=== PATIENT | female | born 1985 | race Two or more races ===

== ENCOUNTER 2024-07-09 18:53 | Emergency (ER) | payer MEDICAID, SELFPAY ==
[2024-07-09] VITALS (7 sets, daily range): BP systolic 134–150; BP diastolic 102–108; PULSE 86–102; RESP 20–24; TEMP 37–37.7; O2SAT 96–100; BMI 35.5
--- NOTE | 2024-07-09 20:19 | EDNOTE_ITS ---
Upper Respiratory Inf. RME/HPI General Chief Complaint: Shortness of Breath/Dyspnea Stated Complaint: SOB Arrival date/time: 07/09/24 18:53 RME / HPI RME / HPI Narrative: DR. CHAVEZ MAIN ED EVALUATION: 38 year old female presents to the Emergency Department [facility] with complaints of a cough and a sore throat onset 4 days ago. EMS states patient had a cough for 2 days had coughing spasms. Patient also has a mild headache today. Symptoms are moderate. PMHx: Denies any PMHx, surgeries, daily medications, or known allergies. Social Hx: Methamphetamine and marijuana use. Related Data Previous Rx's ?Medication ?Instructions ?Recorded albuterol sulfate 90 mcg/actuation 1 inh inhalation QID PRN shortness 07/09/24 aerosol inhaler of breath or wheezing #8.5 grams Allergies Allergy/AdvReac Type Severity Reaction Status Date / Time No Known Allergies Allergy Verified 07/07/22 07:36 Review of Systems Review of Systems Systems Reviewed: All systems reviewed, normal except as documented Narrative Review of Systems: GEN: No fever, no chills, no weight loss EYES: No discharge, no visual changes, no pain HEENT: No ear pain, no congestion, + sore throat PULM: No shortness of breath, + cough CV: No chest pain, no dyspnea on exertion, no palpitations GI: No nausea, no vomiting, no diarrhea, no pain, no constipation : No frequency, no urgency and no dysuria MUSC/SKEL: No joint pain, no back pain SKIN: No rash PSYCH: No hallucinations, no depression HEME/LYMPH: No easy bleeding or bruising tendencies NEURO: No weakness, + mild headache Past Medical History Past Medical History GASTROINTESTINAL: Positive Gall Bladder Disease Surgical History SURGICAL: Positive Tubal Ligation Social History SMOKING STATUS: Never smoker SUBSTANCE USE: marijuana and methamphetamine ALCOHOL: Never ED Exam Narrative Physical exam: GENERAL APPEARANCE: alert and oriented x 4, well-developed, well-nourished, no acute distress VITALS: All vitals were reviewed and the pulse ox is 98% on room air, which is normal according to my interpretation. HEENT: Normocephalic, atraumatic; pupils equal, round, reactive to light; EOMI; mucous membranes pink, moist; oropharynx clear NECK: Supple LUNGS: CTABL; no wheezes, no rales, no rhonchi HEART: Regular rate, regular rhythm; normal S1, S2; no murmurs ABDOMEN: non distended; normal BS; soft, no tenderness, no guarding, no rebound; no masses, no organomegaly, no hernia BACK: no CVA tenderness EXTREMITIES: atraumatic; no edema NEUROLOGIC: awake; alert and oriented x4; cranial nerves II-XII grossly intact; no focal sensory or motor deficits PSYCHIATRIC: appropriate mood and affect SKIN: warm, dry, normal color; no rashes Course Quality Measures none Orders Category Date Time Status Bedside COVID-19 Antigen Test NOW Care 07/09/24 20:22 Active Bedside Influenza A&B Antigen Test NOW Care 07/09/24 20:22 Completed Non Destructive Evaluation Technician NOW Care 07/09/24 20:22 Active EKG (ED ONLY) *Do not use* NOW Care 07/09/24 20:22 Completed EKG (ED Only) Stat Exams 07/09/24 20:22 Draft XR chest 1V portable Stat Exams 07/09/24 20:22 Completed B-Type Natriuretic Peptide Stat Lab 07/09/24 20:38 Completed CBC Stat Lab 07/09/24 20:38 Completed Comprehensive Metabolic Panel Stat Lab 07/09/24 20:38 Completed Lipase Stat Lab 07/09/24 20:38 Completed Magnesium Stat Lab 07/09/24 20:38 Completed Troponin I Stat Lab 07/09/24 20:38 Completed Albuterol/Ipratr Rt Ela [Duoneb Rt Ela] Med 07/09/24 20:38 Discontinued 3 ml INH X1 ONE Albuterol/Ipratr Rt Ela [Duoneb Rt Ela] Med 07/09/24 22:19 Discontinued 3 ml INH X1 ONE Dexamethasone Inj [Decadron Inj] Med 07/09/24 20:38 Discontinued 6 mg IV X1 ONE KCL 10% Liq UDC 15 ML Med 07/09/24 22:17 Discontinued 40 meq PO X1 ONE Vital Signs Vital signs: Vital Signs Temperature 98.6 F 07/09/24 19:11 Pulse Rate 98 07/09/24 19:11 Respiratory Rate 20 07/09/24 19:11 Blood Pressure 149/102 H 07/09/24 19:11 Pulse Oximetry (%) 100 07/09/24 19:11 Oxygen Delivery Method Nasal Cannula 07/09/24 19:11 Oxygen Flow Rate 3 07/09/24 19:11 Upper Respiratory Infection MDM Narrative MDM Narrative:: Daria Kenney am scribing for and in the presence of Dr. Chavez. Patient data External records reviewed:: [facility] previous records (Reviewed last ED visit dated 04/19/23, discharged with the following: Chest wall contusion.) and EMS form Clinical information provided by:: patient and EMS Social determinants that could affect healthcare access:: substance use (Methamphetamine and marijuana use. ) Patient has the following chronic illnesses:: Denies any PMHx, surgeries, daily medications, or known allergies. How is presenting disease/condition affected by chronic disease/condition?: no chronic disease Evaluation data The following diagnostics were reviewed and interpreted by me:: lab results, radiology exam(s) and EKG tracing(s) (sinus rhythm, rate 80, no STEMI) Lab and/or radiology exams considered but not ordered:: none Interpretation Summary: Procedure(s): XR chest 1V portable Accession Number(s): [id number] cc: Tanner Hickman MD; Reginald Stevenson MD; Shonda Chavez MD~ Examination: AP chest single view Technique: AP portable upright chest single view Exam date and time: July 09, [id number] hrs. Comparison 04/19/2023 Indications: Onset chest pain today. Findings: Normal heart size No lobar pneumonia or pulmonary edema Intact osseous structures Impression: No pneumonia or pulmonary edema Dictated By: Reginald Stevenson MD Medications / Prescriptions Medications or Prescriptions considered but not ordered:: none Medication administrations:: Medication Administration History Discontinued Medications Albuterol/Ipratropium (Albuterol/Ipratropium (Duoneb) Rt Ela 3 Ml Nebu) 3 ml INH X1 ONE Stop: 07/09/24 20:39 Last Admin: 07/09/24 21:24 Dose: 3 ml Documented By: LOU Albuterol/Ipratropium (Albuterol/Ipratropium (Duoneb) Rt Ela 3 Ml Nebu) 3 ml INH X1 ONE Stop: 07/09/24 22:20 Last Admin: 07/09/24 22:52 Dose: 3 ml Documented By: LOU Dexamethasone Sodium Phosphate (Dexamethasone Sod Phos Inj 10 Mg/Ml Vial) 6 mg IV X1 ONE Stop: 07/09/24 20:39 Last Admin: 07/09/24 21:16 Dose: 6 mg Documented By: GRACIA Potassium Chloride (Potassium Chloride 10% 20 Meq/15 Ml Udc) 40 meq PO X1 ONE Stop: 07/09/24 22:18 Last Admin: 07/09/24 23:10 Dose: 40 meq Documented By: GRACIA see above Consultations Consultation(s) initiated? (list below): No Diagnosis Upper Respiratory Differential Diagnosis: upper respiratory infection, viral infection, bronchitis, influenza and pharyngitis Most likely diagnosis given after review of the tests above:: Cough Wheezes Admission Indicated Admission indicated?: not indicated Admission Request Was there a request for admission?: No Disposition Plan Disposition Plan: Discharge Discharge Attestation Discharge Attestation: The patient and all family members were given an opportunity to ask questions and understood the discharge instructions. Discharge instructions specifically effects, indications for sooner follow up or return to the emergency department, and the expected course of current diagnosis. Patient condition: Stable Discharge Plan Plan Patient Disposition: HOME (Self Care) Prescriptions/Referrals Prescriptions/Med Rec: New albuterol sulfate 90 mcg/actuation HFA aerosol inhaler 1 inh inhalation QID PRN (Reason: shortness of breath or wheezing) Qty: 8.5 0RF Referrals: Tanner Hickman MD [Primary Care Provider] - In 1 week Problem List Clinical Impression: Cough, Wheezes Patient/Caregiver Discharge Instructions Education Materials: ED Bronchitis with Wheezing (Adult) Print Language: [place] Islander Stand Alone Forms: Robyn Award Info., Patient Portal Info Letter
--- NOTE | 2024-07-09 20:22 | XR_ITS ---
Examination: AP chest single view Technique: AP portable upright chest single view Exam date and time: July 09, [id number] hrs. Comparison 04/19/2023 Indications: Onset chest pain today. Findings: Normal heart size No lobar pneumonia or pulmonary edema Intact osseous structures Impression: No pneumonia or pulmonary edema
--- NOTE | 2024-07-09 20:22 | EKG_ITS ---
[facility] Test Date: 2024-07-09 Pat Name: BISI LOUIS Department: Room: - Gender: Female [employer] Super[employer]: : 1985 Requested By: Shonda Hackett Order Number: [id number] Reading MD: Shonda Hackett Measurements Intervals [place] Rate: 80 P: 36 MN: 163 QRS: 11 QRSD: 102 T: 43 QT: 387 QTc: 448 Interpretive Statements SINUS RHYTHM Compared to ECG 07/07/2022 07:47:00 Incomplete right bundle-branch block no longer present /store/S0/[id number]/ecg/[id number].pdf
[2024-07-09 20:59] LABS: Basophils % (Auto) 0 % (0-2.5); Eosinophils % (Auto) 1 % (0-10); Immature Granulocytes % (Auto) 0 % (0-0); Immature Granulocytes Auto 0.03 Thou/mm3 (0.00-0.00); Lymphocytes # (Auto) 2.5 Thou/mm3 (1.0-4.8); Lymphocytes % (Auto) 31 % (10-50); Mean Corpuscular HGB Conc 30.4 g/dl (31.0-37.0); Mean Corpuscular Hemoglobin 24.7 pg (25.0-35.0); Mean Corpuscular Volume 81 fL (80-100); Monocytes # (Auto) 0.9 Thou/mm3 (0.0-0.8); Monocytes % (Auto) 11 % (0-12); Neutrophils # (Auto) 4.6 Thou/mm3 (1.8-7.7); Neutrophils % (Auto) 58 % (37-80); Nucleated Red Blood Cell # 0.02 Thou/mm3 (0.00-0.00); Nucleated Red Blood Cell % 0 /100 WBC (0); Platelet Count 323 Thou/mm3 (140-440); RDW Standard Deviation 48.7 fL (36.4-46.3); Red Blood Count 3.32 Miln/mm3 (4.00-5.20)
[2024-07-09 21:13] LABS: B-Type Natriuretic Peptide 74 pg/mL (0-100)
[2024-07-09 21:14] LABS: Alanine Aminotransferase 37 U/L (10-49); Albumin, Serum 4.1 gm/dL (3.5-5.0); Albumin/Globulin Ratio 1.3 (1.2-2.2); Alkaline Phosphatase 92 U/L (46-116); Anion Gap 7 (7-16); Aspartate Amino Transferase 13 U/L (0-34); BUN/Creatinine Ratio 11 Ratio (12-20); Bilirubin,Total 0.3 mg/dL (0.3-1.2); Blood Urea Nitrogen 9 mg/dL (9-23); Calcium 8.5 mg/dL (8.3-10.6); Calcium (Corrected) 8.5 mg/dL (8.5-10.1); Chloride 104 mMol/L (98-107); Creatinine (Component) 0.8 mg/dL (0.6-1.3); Estimated Creatinine Clearance 111.4 mL/min (>60); Globulin 3.2 gm/dL (2.3-3.5); Glucose 113 mg/dL (74-106); Lipase 38 U/L (12-53); Magnesium 1.7 mg/dL (1.6-2.6); Osmolality,Calculated 275 (275-295); Potassium 3.3 mMol/L (3.4-5.1); Sodium 138 mMol/L (136-145); Total Protein 7.3 gm/dL (5.7-8.2); Troponin I < 0.002 ng/mL (0.0-0.045); eGFR > 60 See Note
[2024-07-09] MEDS: DEXAMETHASONE SOD PHOS INJ 10 MG/ML VIAL 6 MG IV (21:16)
[2024-07-09 21:24] LABS: Hemoglobin 8.2 g/dL (12.0-16.0)
[2024-07-09] MEDS: ALBUTEROL/IPRATROPIUM (Duoneb) RT SOL 3 ML NEBU INH ×2 (21:24→22:52)
[2024-07-09] MEDS: POTASSIUM CHLORIDE 10% 20 MEQ/15 ML UDC 40 MEQ PO (23:10)
--- NOTE | 2024-07-09 23:15 | PC.NURSE ---
Pt resting quietly, family at bedside. Cogh has seemed to deminished.
[2024-07-10 00:23] VITALS: RESP 18; O2SAT 95
== END 2024-07-10 00:23 | disposition home or self-care (01) ==
PROVIDERS: Emergency Provider Emergency Medicine; PCP Family Medicine
DX: R05.9 Cough, unspecified (principal); R07.9 Chest pain, unspecified; R06.2 Wheezing
CPT/HCPCS: 36415; 71045; 80053; 83690; 83735; 83880; 84484; 85025; 87400; 87811; 93005; 94640; 96374; 99284; A9270; J1100

== ENCOUNTER 2024-11-22 10:48 | Emergency (ER) | payer MEDICAID, SELFPAY ==
[2024-11-22 10:49] VITALS: BMI 32.1
[2024-11-22 11:09] VITALS: BP 124/81; PULSE 107; RESP 17; TEMP 36.9; O2SAT 100
--- NOTE | 2024-11-22 12:33 | EDNOTE_ITS ---
<Statement entered by Shonda Chavez MD - 11/22/24 14:46> As co-signing physician, I was present and available for consult prn. I concur with the plan and care as documented by the midlevel provider. ED Skin Abcess FB-RME/HPI General Chief complaint: Skin/Abscess/Foreign Body Stated complaint: BUMP TO L MID BACK X2 WEEKS Time Seen by Provider: 11/22/24 10:55 Arrival date/time: 11/22/24 10:48 39-year-old female presents emergency department today complaints of bump to the back patient reports symptoms ongoing for last couple of weeks patient reports that this has been there in the past and she has had to have it drained. Patient reports no significant medical problems no chance of Limitations: no limitations Related Data Previous Rx's ?Medication ?Instructions ?Recorded albuterol sulfate 90 mcg/actuation 1 inh inhalation QI D PRN shortness 07/09/24 aerosol inhaler of breath or wheezing #8.5 g brian clindamycin HCl 150 mg capsule 450 mg (3 x 150 mg) PO TID 7 days 11/22/24 #63 caps ibuprofen 600 mg tablet 600 mg PO Q6H #30 tabs 11/22 Allergies Allergy/AdvReac Type Severity Reaction Status Date / Time No Known Allergies Allergy Verified 07/07/22 07:36 Review of Systems Review of Systems Systems Reviewed: All systems reviewed, normal except as documented Constitutional Constitutional: Reports system reviewed and no additional complaints, except as documented, Denies fatigue, Denies fever(s) and Denies headache(s) Eyes Eyes: Reports system reviewed and no additional complaints, except as documented ENT Ears, Nose, Mouth, and Throat: Reports system reviewed and no additional complaints, except as documented, Denies dizziness and Denies headache(s) Cardiovascular Cardiovascular: Reports system reviewed and no additional complaints, except as documented, Denies chest pain, Denies dyspnea and Denies dyspnea on exertion Respiratory Respiratory: Reports system reviewed and no additional complaints, except as documented, Denies chest congestion, Denies cough, Denies dyspnea and Denies dyspnea on exertion Gastrointestinal Gastrointestinal: Reports system reviewed and no additional complaints, except as documented, Denies abdominal pain, Denies nausea and Denies vomiting Genitourinary Genitourinary: Reports system reviewed and no additional complaints, except as documented, Denies flank pain, Denies hematuria and Denies pelvic pain Musculoskeletal Musculoskeletal: Reports system reviewed and no additional complaints, except as documented, Denies abnormal gait, Denies numbness, Denies stiffness and Denies tingling Integumentary/Breasts Skin/Breast: Reports system reviewed and no additional complaints, except as documented, Denies rash, Denies wounds and Reports other (Infected sebaceous cyst) Neurologic Neurologic: Reports system reviewed and no additional complaints, except as documented, Denies abnormal gait, Denies dizziness, Denies headache(s), Denies numbness and Denies tingling Psychiatric Psychiatric: Reports system reviewed and no additional complaints, except as documented and Denies anxiety Endocrine Endocrine: Denies fatigue Past Medical History Past Medical History CARDIAC: Negative Cardiac Disorders or Congestive Heart Failure RESPIRATORY: Negative Chronic Obstructive Pulmonary Disease (COPD) or Asthma GASTROINTESTINAL: Positive Gall Bladder Disease GENITOURINARY: Negative Renal Disease ENDOCRINE: Negative Diabetes Mellitus Type 1 or Diabetes Mellitus Type 2 HEMATOLOGIC: Negative Sickle Cell Disease Surgical History SURGICAL: Positive Tubal Ligation Social History SMOKING STATUS: Never smoker SUBSTANCE USE: marijuana and methamphetamine ED Exam General Limitations: Present no limitations General appearance: Present alert and in no apparent distress Head Head exam: Present atraumatic Eye Eye exam: Present normal appearance, PERRL and EOMI ENT ENT exam: Present normal exam, normal oropharynx and mucous membranes moist Neck Neck exam: Present normal inspection, full ROM and trachea midline Chest Chest inspection: Present normal inspection and symmetric chest wall rise Respiratory Respiratory exam: Present normal lung sounds bilaterally Cardiovascular Cardiovascular exam: Present regular rate, normal rhythm and normal heart sounds Abdominal Exam Abdominal exam: Present soft and normal bowel sounds Extremities Exam Extremities exam: Present normal inspection and full ROM Back Exam Back exam: Present normal inspection and full ROM Neurological Exam Neurological exam: Present alert, oriented X3 and CN II-XII intact Psychiatric Psychiatric exam: Present normal affect and normal mood Skin Skin exam: Present warm, dry and other (Infected sebaceous cyst) Course Quality Measures none Orders Category Date Time Status Consult to General Surgery Stat Cons 11/22/24 11:28 Ordered Lidocaine 1% 20 ml [Xylocaine 1% 20 ML] Med 11/22/24 12:34 Discontinued 2.1 ml INFL X1 ONE cefTRIAXone [Rocephin] Med 11/22/24 12:34 Discontinued 1,000 mg IM X1 ONE Vital Signs Vital signs: Vital Signs Temperature 98.4 F 11/22/24 11:09 Pulse Rate 107 H 11/22/24 11:09 Respiratory Rate 17 11/22/24 11:09 Blood Pressure 124/81 11/22/24 11:09 Pulse Oximetry (%) 100 11/22/24 11:09 Oxygen Delivery Method Room Air 11/22/24 11:09 O2 saturation 100% on room air within the limits Procedures -ED Abscess I/D Site: back Side (if applicable): left Local Anesthetic: lidocaine 1% Amount of anesthesia used (mL): 10 Technique: incised with #11 blade Amount of fluid expressed (mL): 20 Irrigation: Yes Packing used?: none Complications: pain Skin / Abscess / Foreign Body MDM Narrative MDM Narrative:: 39-year-old female presents emergency department today complaints of bump to the back patient reports symptoms ongoing for last couple of weeks patient reports that this has been there in the past and she has had to have it drained. Patient reports no significant medical problems no chance of On exam patient has what appears to be infectious cyst Consultation: I spoke with Dr. Clark who evaluated patient felt the patient should have drainage here and she will follow-up in the office I&D performed patient Toller procedure well copious amounts of discharge removed Patient data External records reviewed:: [facility] [place] previous records Clinical information provided by:: patient Social determinants that could affect healthcare access:: none Patient has the following chronic illnesses:: none How is presenting disease/condition affected by chronic disease/condition?: no chronic disease Evaluation data The following diagnostics were reviewed and interpreted by me:: other (specify) (na ) Lab and/or radiology exams considered but not ordered:: na Interpretation Summary: na Medications / Prescriptions Medications or Prescriptions considered but not ordered:: given Medication administrations:: Medication Administration History Discontinued Medications Ceftriaxone Sodium (Ceftriaxone Sod Inj 1,000 Mg Vial) 1,000 mg IM X1 ONE Stop: 11/22/24 12:35 Last Admin: 11/22/24 12:49 Dose: 1,000 mg Documented By: OA Lidocaine HCl (Lidocaine Hcl 1% 20 Ml Vial) 2.1 ml INFL X1 ONE Stop: 11/22/24 12:35 Last Admin: 11/22/24 12:49 Dose: 2.1 ml Documented By: OA given Consultations Consultation(s) initiated? (list below): No Diagnosis Skin/Abscess Differential Diagnosis: abscess of skin or subcutaneous tissue and cellulitis Most likely diagnosis given after review of the tests above:: infected sebaceous cyst Admission Indicated Admission indicated?: not indicated Admission Request Was there a request for admission?: No Disposition Plan Disposition Plan: Discharge Discharge Attestation Discharge Attestation: The patient and all family members were given an opportunity to ask questions and understood the discharge instructions. Discharge instructions specifically effects, indications for sooner follow up or return to the emergency department, and the expected course of current diagnosis. Patient condition: Stable Discharge Plan Plan Patient Disposition: HOME (Self Care) Disposition Comment: Stable Prescriptions/Referrals Prescriptions/Med Rec: New clindamycin HCl 150 mg capsule 450 mg PO TID 7 Days Qty: 63 0RF ibuprofen 600 mg tablet 600 mg PO Q6H Qty: 30 0RF No Action albuterol sulfate 90 mcg/actuation HFA aerosol inhaler 1 inh inhalation QID PRN (Reason: shortness of breath or wheezing) Qty: 8.5 0RF Referrals: Tanner Hickman MD [Primary Care Provider] - In 1 week Problem List Clinical Impression: Infected sebaceous cyst of skin Patient/Caregiver Discharge Instructions Education Materials: ED Wound Check (Infection) Additional Instructions: Please follow-up with the surgeon as discussed for worsening symptoms return immediately Print Language: Irish Stand Alone Forms: Robyn Award Info., Patient Portal Info Letter IDA/LALITA Supervising Physician IDA/LALITA Supervising Physician: Dr CHAVEZ
[2024-11-22] MEDS: cefTRIAXone SOD INJ 1,000 MG VIAL 1000 MG IM (12:49)
[2024-11-22] MEDS: LIDOCAINE HCL 1% 20 ML VIAL 2.1 ML INFL (12:49)
== END 2024-11-22 14:28 | disposition home or self-care (01) ==
PROVIDERS: Emergency Provider Emergency Medicine; PCP Family Medicine
DX: L72.3 Sebaceous cyst (principal)
CPT/HCPCS: 10060; 96372; 99283; J0696; J3490

== ENCOUNTER 2025-02-19 18:56 | Emergency (ER) | payer MEDICAID, SELFPAY ==
[2025-02-19 18:58] VITALS: BMI 32.3
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
[2025-02-19 19:35] VITALS: BP 137/81; PULSE 86; RESP 16; TEMP 36.6; O2SAT 100
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
[2025-02-19] MEDS: DIPHTH,PERTUSS(ACELL),TET VAC 0.5 ML SYR- ADULT IMi (19:47)
== END 2025-02-19 22:10 | disposition home or self-care (01) ==
PROVIDERS: Emergency Provider Emergency Medicine; PCP Family Medicine
DX: S02.2XXA Fracture of nasal bones, initial encounter for closed fracture (principal); S70.311A Abrasion, right thigh, initial encounter; S30.0XXA Contusion of lower back and pelvis, initial encounter; S00.83XA Contusion of other part of head, initial encounter; S70.12XA Contusion of left thigh, initial encounter; S70.11XA Contusion of right thigh, initial encounter; M53.3 Sacrococcygeal disorders, not elsewhere classified; M54.2 Cervicalgia; Y04.2XXA Assault by strike against or bumped into by another person, initial encounter; Z23 Encounter for immunization
CPT/HCPCS: 70450; 70486; 72125; 72220; 73552; 81025; 90471; 90715; 99284; A9270

== ENCOUNTER 2025-03-24 23:47 | Emergency (ER) | payer MEDICAID, SELFPAY ==
[2025-03-24 23:48] VITALS: BMI 32.1
[2025-03-25] VITALS (9 sets, daily range): BP systolic 117–131; BP diastolic 66–83; PULSE 69–97; RESP 12–18; TEMP 36.6–37; O2SAT 98–100
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
[2025-03-25] MEDS: HYDROcodone/APAP 5/325 TABLET 1 TAB PO (01:07)
[2025-03-25 01:47] LABS: Collection Type, Urine Clean Catch
[2025-03-25 01:57] LABS: Basophils # (Auto) 0.0 Thou/mm3 (0.0-0.2); Basophils % (Auto) 0 % (0-2.5); Eosinophils # (Auto) 0.2 Thou/mm3 (0.0-0.5); Eosinophils % (Auto) 2 % (0-10); Hematocrit 24.2 % (36.0-46.0); Immature Granulocytes Auto 0.03 Thou/mm3 (0.00-0.00); Lymphocytes # (Auto) 3.2 Thou/mm3 (1.0-4.8); Lymphocytes % (Auto) 38 % (10-50); Mean Corpuscular HGB Conc 27.7 g/dl (31.0-37.0); Mean Corpuscular Hemoglobin 20.0 pg (25.0-35.0); Mean Corpuscular Volume 72 fL (80-100); Monocytes # (Auto) 0.9 Thou/mm3 (0.0-0.8); Monocytes % (Auto) 10 % (0-12); Neutrophils # (Auto) 4.2 Thou/mm3 (1.8-7.7); Neutrophils % (Auto) 49 % (37-80); Nucleated Red Blood Cell # 0.00 Thou/mm3 (0.00-0.00); Nucleated Red Blood Cell % 0 /100 WBC (0); Platelet Count 335 Thou/mm3 (140-440); RDW Standard Deviation 48.4 fL (36.4-46.3); Red Blood Count 3.35 Miln/mm3 (4.00-5.20); White Blood Count 8.5 Thou/mm3 (3.6-11.0)
[2025-03-25 02:02] LABS: Hemoglobin 6.7 g/dL (12.0-16.0)
[2025-03-25 02:03] LABS: Path Review Blood Smear Sent to Pathologist
[2025-03-25 02:06] LABS: Bacteria,Urine Rare; Bilirubin,Urine Negative (Negative); Blood,Urine Negative (Negative); Clarity,Urine Turbid (Clear/Hazy); Color,Urine Yellow (Lt Yel-Yel); Glucose, Urine Negative (Negative); Ketones,Urine Negative (Negative); Leukocyte Esterase,Urine Positive (Negative); Nitrite,Urine Negative (Negative); PH,Urine 6.0 (5.0-7.0); Protein,Urine Trace (Neg - Trace); RBC,Urine 5 /hpf (0-3); Specific Gravity,Urine 1.025 (1.001-1.035); Squamous Epithelial Cell,Urine 9 /hpf (0-5); Urobilinogen,Urine Negative mg/dL (0.0-1.0); WBC,Urine 13 /hpf (0-5)
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
[2025-03-25 02:14] LABS: Amphetamine/Methamp Scrn,U Positive (Negative); Barbiturate Screen,Urine Negative (Negative); Benzodiazepines Screen,Urine Negative (Negative); Benzoylecgonine Screen, Ur Negative (Negative); Fentanyl Screen,Urine Negative (Negative); Opiate Screen,Urine Negative (Negative); THC Screen,Urine Positive (Negative)
[2025-03-25 02:15] LABS: Culture Indicated,Urine Yes
[2025-03-25 02:21] LABS: HCG Qualitative,Urine Negative
[2025-03-25 02:23] LABS: Alanine Aminotransferase 8 U/L (10-49); Albumin, Serum 3.9 gm/dL (3.5-5.0); Albumin/Globulin Ratio 1.3 (1.2-2.2); Alcohol, Blood Medical < 3.0 mg/dL (0-10.0); Alkaline Phosphatase 77 U/L (46-116); Anion Gap 8 (7-16); Aspartate Amino Transferase 15 U/L (0-34); BUN/Creatinine Ratio 19 Ratio (12-20); Bilirubin,Total 0.4 mg/dL (0.3-1.2); Blood Urea Nitrogen 15 mg/dL (9-23); Calcium 9.2 mg/dL (8.3-10.6); Calcium (Corrected) 9.3 mg/dL (8.5-10.1); Carbon Dioxide 27.6 mMol/L (20.0-31.0); Chloride 103 mMol/L (98-107); Creatinine (Component) 0.8 mg/dL (0.6-1.3); Estimated Creatinine Clearance 104.7 mL/min (>60); Globulin 3.0 gm/dL (2.3-3.5); Glucose 85 mg/dL (74-106); Osmolality,Calculated 277 (275-295); Potassium 3.5 mMol/L (3.4-5.1); Sodium 139 mMol/L (136-145); Total Protein 6.9 gm/dL (5.7-8.2); eGFR > 60 See Note
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
[2025-03-25] MEDS: KETOROLAC INJ 30 MG/ML VIAL IVP (03:57)
--- NOTE | 2025-03-25 07:26 | PD.EDADDENDU ---
Emergency Room Addendum Addendum Narrative: Care assumed from . Past medical, surgical, social and family history reviewed. Vitals and home medications reviewed. Results and treatment plan discussed. I will assume the care of the patient at this time and will follow the patient, pending psychiatric placement. Please refer to the emergency department record for history and examination from initial visit. Patient remained stable while under my care. Plan patient completed her transfusion of PRBC. Patient was in stable condition and was discharged home.
== END 2025-03-25 07:31 | disposition home or self-care (01) ==
PROVIDERS: Physician Assistant; Emergency Provider Emergency Medicine; PCP Family Medicine
DX: S02.2XXA Fracture of nasal bones, initial encounter for closed fracture (principal); S00.11XA Contusion of right eyelid and periocular area, initial encounter; S19.9XXA Unspecified injury of neck, initial encounter; R06.02 Shortness of breath; R07.9 Chest pain, unspecified; Y04.2XXA Assault by strike against or bumped into by another person, initial encounter
CPT/HCPCS: 36415; 36430; 70450; 70486; 71045; 72125; 80053; 80307; 80320; 81001; 81025; 85025; 86850; 86900; 86901; 86923; 87077; 87086; 87186; 96374; 99284; J1885; P9016; A9270; G0480